=== PATIENT | male | born 1980 | race Caucasian/White ===

== ENCOUNTER 2016-04-23 10:04 | Day surgery (SDC) | payer OTHER ==
[~2016-04-23] VITALS: Ht 167.6 cm; Wt 90.7 kg
[2016-04-23] MEDS ORDERED: GLUCOTROL10 MG PO (11:10)
[2016-04-23] MEDS ORDERED: ZOCOR20 MG PO (11:10)
[2016-04-23] MEDS ORDERED: METFORMIN HYD1000 M1 PO (11:10)
[2016-04-23] MEDS ORDERED: NORVASC10 MG PO (11:10)
[2016-04-23] MEDS ORDERED: ZESTRIL10 MG PO (11:10)
[2016-04-23] MEDS ORDERED: fentaNYL 0.05 MG/ML VIAL ONE (12:13)
[2016-04-23] MEDS ORDERED: MIDAZOLAM 2 MG/2 ML VIAL ONE (12:13)
[2016-04-23] MEDS ORDERED: LIDOCAINE 2% 100 MG/5 ML UJET TP ONE (12:14)
== END 2016-04-23 13:15 | disposition home or self-care (01) ==
LOC: MDS 10:04 → MMU 10:05 → MDS 13:15
PROVIDERS: ATTEND Internal Medicine Gastroenterology
DX: K62.89 Other specified diseases of anus and rectum (principal)
CPT/HCPCS: 45380; 82948; J2250; J7030